=== PATIENT | female | born 1990 | race Caucasian/White ===

== ENCOUNTER → 2016-12-10 | Outpatient (CLI) | payer OTHER ==
--- NOTE | 2016-12-10 11:45 | US ---
Complete Abdominal Ultrasound History: Diffuse abdominal discomfort for 4 months. Comparison: None available. Findings: The liver is borderline echogenic with no focal hepatic masses. There is no intrahepatic bi liary dilatation. The common bile duct measures 2 mm and is normal. The gallbladder is normal. The sp phani is normal, measuring 10.3 cm. The kidneys have normal echotexture and contour without hydronephr osis or contour deforming masses. The right kidney measures 11.8 cm and the left kidney measures 10.6 cm. The visible aorta is normal caliber. The visible portions of the pancreas are normal with partia l obscuration of the pancreatic head and tail by overlying bowel gas. The visible portions of the IVC are normal. Impression: No visible etiology for the patient's symptoms.
--- NOTE | 2016-12-10 12:17 | DX ---
Upright PA and Lateral Chest, 2 Views Total, at 9:03 a.m. Clinical Indications: 26-year-old female with upper normal pain. Comparison Study: None. Findings: The lungs are clear, and no masses are found. The heart and pulmonary vessels are normal. There are no pleural effusions, and no pneumothorax. There is no free, subdiaphragmatic air. The b ones are unremarkable for this age. Impression: Normal.
== END ==
LOC: FIMAGING 08:42
PROVIDERS: ATTEND Family Medicine
DX: R07.89 Other chest pain (principal); R10.12 Left upper quadrant pain

== ENCOUNTER → 2018-12-02 | Outpatient (CLI) | payer OTHER | LOC: FIMAGING 10:06 | PROVIDERS: ATTEND Obstetrics & Gynecology | DX: O28.1 Abnormal biochemical finding on antenatal screening of mother (principal); R77.2 Abnormality of alphafetoprotein; Z3A.20 20 weeks gestation of pregnancy ==

== ENCOUNTER → 2019-02-17 | Outpatient (CLI) | payer OTHER | LOC: FIMAGING 14:57 | PROVIDERS: ATTEND Obstetrics & Gynecology | DX: O26.893 Other specified pregnancy related conditions, third trimester (principal); Z3A.31 31 weeks gestation of pregnancy ==

== ENCOUNTER 2019-04-13 08:42 | Inpatient (IN) | payer OTHER ==
--- NOTE | 2019-04-12 19:21 | GHP ---
[f rep st] PREOP HISTORY AND PHYSICAL DATE OF ADMISSION: 04/13/2019 HISTORY: The patient is a 28-year-old, G1, P0, with an estimated due date of 04/19/2019, who is here for a primary for breech presentation at 39 weeks and 1 day. Upon admission, the patient denies any regular contractions but occasional Tillman Ordaz. The patient has not had leakage of flu id or any bleeding and is reporting good movement. The patient was noted to be a breech presen tation for many weeks and declined an attempt external cephalic version. The patient has been counse led about the risks and benefits of primary section and has signed the consent form. COURSE: The patient has been followed with [facility] since 9 weeks gestation. The patient had an early ultrasound at 10 weeks that was consistent with her last menstrual period. The patient was noted to have an elevated MSAFP at 16 weeks gestation and had an evaluation, ultrasou nd and consult with the specialists on November 15. There was good reassurance of normal anatomy, an d they felt ruled out 98% of open neural tube defect, however, recommended a followup ultrasound in 2 -3 weeks. At that time, the estimated weight was 73rd percentile, and there were suboptimal vi ews of the lower spine. A recheck ultrasound on December 02 revealed an estimated weight at 97th percentile with a good recheck of anatomy and spine all normal. The specialist recommended a growth ultrasound in early third trimester and an early Glucola due to LGA. The patient had an early Glucola which was normal, and this was also repeated at 28 weeks and was normal. The patient had a followup growth ultrasound at 31 weeks and was 76th percentile size with normal fluid. The baby was breech presentation at that time and has remained so at every office visit since then. The patient w as offered external version at 37 weeks and declined. labs include maternal blood type O positive with negative antibody screen, RPR nonreactive. Rubella titer shows low immunity. Hepatitis B surface antigen negative, HIV negative. Cystic fibro sis, SMA, fragile X, all negative. Standard panel all negative. Urinalysis and culture negative. U rine drug screen negative. Pap smear negative. Gonorrhea and chlamydia negative. Verifi chromosome testing was negative. Initial CBC showed a hematocrit of 37.8%, and this dropped to 34% in mid preg gretchen, and the patient was initiated on iron. One-hour Glucola x2 evaluations was normal. GBS cultu re was negative. Varicella testing showed immunity. PAST MEDICAL HISTORY: Negative. PAST SURGICAL HISTORY: Negative. ALLERGIES: The patient has no known drug allergies. CURRENT MEDICATIONS: Only vitamins and iron. SOCIAL HISTORY: The patient is , lives with her . 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 The patient is a nonsmoker. No alcohol or drug use in . PHYSICAL EXAMINATION: GENERAL: At the time of preop, the patient is a well-developed, well-nourishe d white female in no physical distress. VITAL SIGNS: Patient is clinically afebrile. Blood pressur e 122/70. Weight 185 pounds. Urinalysis negative for protein or glucose. ABDOMEN: The patient has a gravid abdomen with fundal height of 38 cm and heart tones in the 140s. CERVICAL: Not perf ormed. EXTREMITIES: Do not show any edema and they are nontender. ASSESSMENT: Intrauterine at 39 weeks and 1 day, scheduled for primary section due to breech presentation. Rubella shows low immunity. Elevated MSAFP but normal ultrasounds and no i ssues with hypertension. Good growth in the third trimester. Mild anemia. PLAN: Will proceed with primary on 04/13/2019. The patient will receive preoperative anti biotics and will have SCDs on her lower extremities for DVT prophylaxis. Consent form signed for C-s ection. /[id number]/MODL
[~2019-04-13 08:42] MED LIST: AMMONIA AROMATIC 1 EACH AMP IH ONE; LIDOCAINE 1% 300 MG/30 ML SDV ONE; MISOPROSTOL 200 MCG TAB ONE; OXYTOCIN 10 UNIT/ML VIAL ONE; TERBUTALINE SULFATE 1 MG/ML VIAL ONE
[2019-04-13] MEDS ORDERED: CITRIC ACID/SODIUM CITRATE 30 ML UDCUP PO ONE (09:22)
[2019-04-13] MEDS ORDERED: ceFAZolin 2 GM/DEXTROSE 100 ML IV ONE (09:22)
[2019-04-13] MEDS ORDERED: LR 500 ML IV ONE (09:22)
[2019-04-13] MEDS: LR 1,000 ML IV SCH ×2 (09:31→14:49)
[2019-04-13 09:37] LABS: PLATELET COUNT 165 10^3/uL (150-400)
--- NOTE | 2019-04-13 10:18 | PDANEPAE ---
ANE Past Medical History - Cardiovascular History Hx Hypertension: No Hx Arrhythmias: No Hx Chest Pain: No Hx Coronary Artery / Peripheral Vascular Disease: No Hx CHF / Valvular Disease: No Hx Palpitations: No - Pulmonary History Hx COPD: No Hx Asthma/Reactive Airway Disease: No Hx Recent Upper Respiratory Infection: No Hx Oxygen in Use at Home: No Hx Sleep Apnea: No - Surgical History Prior Surgeries: wisdom teeth removal ANE Review of Systems Review of Systems: ANE Patient History - Allergies Allergies/Adverse Reactions: No Known Allergies Allergy (Unverified 04/11/19 19:38) - Home Medications Home medications: home medication list seen and reviewed - Anes Hx Anes Hx: no prior problems - Smoking Hx Smoking Status: Never smoked - Family Anes Hx Family Anes Hx: none ANE Labs/Vital Signs - Labs Result Diagrams: 04/13/19 09:20 - Vital Signs Height: 172.72 cm Weight: 83.915 kg ANE Physical Exam - Airway Neck exam: FROM Mallampati Score: Class 2 Mouth exam: normal dental/mouth exam - Pulmonary Pulmonary: clear to auscultation - Cardiovascular Cardiovascular: regular rate and rhythym - ASA Status ASA Status: II ANE Anesthesia Plan Anesthesia Plan: spinal
[2019-04-13] MEDS ORDERED: ePHEDrine SULFATE 25 MG/5 ML SYR ONE ×2 (10:22→12:08)
[2019-04-13] MEDS ORDERED: BUPIVACAINE/DEXTROSE 7.5MG/ML 2 ML SPINAL AMP SP ONE (10:23)
--- NOTE | 2019-04-13 10:26 | PDHPUP ---
History & Physical Update H&P update statement: This history and physical update is based on an assessment of the patient which was completed after admission or registration (within 24 hours), but prior to the surgery/procedure. H&P update: no change in patient's condition since H&P completed
[2019-04-13] MEDS ORDERED: ONDANSETRON 4 MG/2 ML VIAL ONE (10:58)
[2019-04-13] MEDS ORDERED: morphINE PF 5 MG/10 ML INJ ONE (11:02)
[2019-04-13] MEDS ORDERED: RANITIDINE 50 MG/2 ML VIAL ONE (12:07)
[2019-04-13] MEDS ORDERED: PHENYLEPHRINE HCL 100 MCG/ML SYR ONE (12:08)
[2019-04-13] MEDS ORDERED: METOCLOPRAMIDE 10 MG/2 ML VIAL ONE (12:08)
[2019-04-13] MEDS ORDERED: OXYTOCIN 100 UNITS/10 ML VIAL ONE (12:24)
[2019-04-13] MEDS ORDERED: OXYCODONE/APAP 5/325 TAB PO PRN (12:36)
[2019-04-13] MEDS ORDERED: fentaNYL 100 MCG/2 ML INJ IVP PRN (12:36)
[2019-04-13] MEDS ORDERED: NALOXONE HCL 0.4 MG/ML INJ IVP PRN ×2 (12:36→13:10)
[2019-04-13] MEDS ORDERED: PHENYLEPHRINE HCL 100 MCG/ML SYR IVP PRN (12:36)
[2019-04-13] MEDS ORDERED: METOCLOPRAMIDE 10 MG/2 ML VIAL IVP PRN (12:36)
[2019-04-13] MEDS ORDERED: ONDANSETRON 4 MG/2 ML VIAL IVP PRN (12:36)
[2019-04-13] MEDS ORDERED: MEPERIDINE 25 MG/0.5 ML AMP IVP PRN (12:36)
[2019-04-13] MEDS ORDERED: HYDROCODONE/APAP 5/325 TAB PO PRN (12:36)
[2019-04-13] MEDS ORDERED: HYDROmorphONE/DILAUDID 1 MG/ML INJ IVP PRN (12:36)
--- NOTE | 2019-04-13 12:41 | PREANESOB ---
Obstetric Pre-Anesthesia Info - General Info Proposed Procedure: C section : 1 Para: 0 KYLER: 04/19/19 Gestational Age: 39 week(s) and 1 day(s) - Info Status: Full Term - Labor Status Section History: Primary Indications for Current Section: Abnormal Lie, Breech Anesthesia Allergies/Adverse Reactions: Allergy/AdvReac Type Severity Reaction Status Date / Time No Known Allergies Allergy Unverified 04/11/19 19:38 Visit Medications: Generic Name Dose Route Start Last Admin Trade Name Freq PRN Reason Stop Dose Admin Hydrocodone Bitart/Acetaminophen 1 - 2 tab 04/13/19 12:36 [place] 5/325 PO 04/13/19 13:37 Q4HRS PRN Pain, Moderate Able to Take PO Ephedrine Sulfate 10 - 20 mg 04/13/19 12:36 Ephedrine Sulfate IV 04/13/19 13:37 Q5M PRN Hypotension Fentanyl 25 - 50 mcg 04/13/19 12:36 Sublimaze IVP 04/13/19 13:36 Q5M PRN Short acting pain control Hydromorphone HCl 0.2 - 0.4 mg 04/13/19 12:36 Dilaudid IVP 04/13/19 13:36 Q10M PRN Pain, Severe Unable to Take PO Lactated Ringer's 1,000 mls @ 125 mls/hr 04/13/19 09:22 04/13/19 09:31 Lr IV 04/14/19 09:21 1,000 mls CONT KATHY Administration Meperidine HCl 12.5 - 25 mg 04/13/19 12:36 Demerol IVP 04/13/19 13:37 Q10M PRN shivering/rigors Metoclopramide HCl 10 mg 04/13/19 12:36 Reglan Injection IVP 04/13/19 13:37 ONCE PRN GI motility Naloxone HCl 0.1 mg 04/13/19 12:36 Narcan IVP 04/13/19 13:37 Q2M PRN Respiratory Depression Ondansetron HCl 4 mg 04/13/19 12:36 Zofran IVP 04/13/19 13:37 ONCE PRN Nausea/Vomiting, Can't Take PO Oxycodone/Acetaminophen 1 - 2 tab 04/13/19 12:36 Percocet 5/325 PO 04/13/19 13:37 Q4HRS PRN Pain, Severe Able to Take PO Phenylephrine HCl 100 mcg 04/13/19 12:36 Neosynephrine IVP 04/13/19 13:37 Q1M PRN Hypotension Discontinued Medications Generic Name Dose Route Start Last Admin Trade Name Freq PRN Reason Stop Dose Admin Ammonia (Aromatic Spirit) Confirm 04/13/19 07:50 Ammonia Aromatic Administered 04/13/19 07:51 Dose 1 each IH .STK-MED ONE Bupivacaine HCl/Dextrose Confirm 04/13/19 10:23 Marcaine Spinal Administered 04/13/19 10:24 Dose 2 ml SP .STK-MED ONE Citric Acid/Sodium Citrate 30 ml 04/13/19 09:22 04/13/19 10:19 Bicitra PO 04/13/19 09:23 30 ml ONCALL ONE Administration Ephedrine Sulfate Confirm 04/13/19 10:22 Ephedrine Sulfate Administered 04/13/19 10:23 Dose 25 mg .ROUTE .STK-MED ONE Ephedrine Sulfate Confirm 04/13/19 12:08 Ephedrine Sulfate Administered 04/13/19 12:09 Dose 25 mg .ROUTE .STK-MED ONE Cefazolin Sodium/Dextrose 100 mls @ 200 mls/hr 04/13/19 09:22 04/13/19 10:18 Ancef IV 04/13/19 09:51 100 mls ONCALL ONE Administration Protocol Lactated Ringer's 500 mls @ 0 mls/hr 04/13/19 09:22 Lr IV 04/13/19 09:23 ONCE ONE As Directed Lidocaine HCl Confirm 04/13/19 07:50 Lidocaine Hcl 1% Administered 04/13/19 07:51 Dose 300 mg .ROUTE .STK-MED ONE Metoclopramide HCl Confirm 04/13/19 12:08 Reglan Injection Administered 04/13/19 12:09 Dose 10 mg .ROUTE .STK-MED ONE Misoprostol Confirm 04/13/19 07:51 Cytotec Administered 04/13/19 07:52 Dose 1,000 mcg .ROUTE .STK-MED ONE Morphine Sulfate Confirm 04/13/19 11:02 Morphine Pf 5 Mg/10 Ml Administered 04/13/19 11:03 Dose 5 mg .ROUTE .STK-MED ONE Ondansetron HCl Confirm 04/13/19 10:58 Zofran Administered 04/13/19 10:59 Dose 4 mg .ROUTE .STK-MED ONE Oxytocin Confirm 04/13/19 07:51 Pitocin Administered 04/13/19 07:52 Dose 40 unit .ROUTE .STK-MED ONE Oxytocin Confirm 04/13/19 12:24 Pitocin Administered 04/13/19 12:25 Dose 100 units .ROUTE .STK-MED ONE Phenylephrine HCl Confirm 04/13/19 12:08 Neosynephrine Administered 04/13/19 12:09 Dose 1,000 mcg .ROUTE .STK-MED ONE Ranitidine HCl Confirm 04/13/19 12:07 Zantac Administered 04/13/19 12:08 Dose 50 mg .ROUTE .STK-MED ONE Terbutaline Sulfate Confirm 04/13/19 07:51 Brethine Administered 04/13/19 07:52 Dose 1 mg .ROUTE .STK-MED ONE - Anesthesia History Anesthesia & Operative History: No Prior Problems - Vital Signs Height/Weight (Nursing): Height 172.72 cm Weight 83.915 kg - Focused Exam Neck exam: FROM Mallampati Score: Class 2 Mouth exam: normal dental/mouth exam Pulmonary: clear to auscultation Cardiovascular: regular rate and rhythym Labs: 04/13/19 09:20 Patient ABO/Rh O POSITIVE 04/13/19 09:20 - Plan Consent Signed and on Chart: Yes Patient/Guardian Understands and Agrees to Plan: Yes
[2019-04-13] MEDS: KETOROLAC 30 MG/1 ML SDV IVP SCH ×2 (13:00→18:56)
[2019-04-13] MEDS ORDERED: POLYETHYLENE GLYCOL 3350 17 GM PKT PO PRN (13:02)
[2019-04-13] MEDS ORDERED: LACTULOSE 20 GM/30 ML UDCUP PO PRN (13:02)
[2019-04-13] MEDS ORDERED: PROMETHAZINE HCL 25 MG/ML INJ IVP PRN (13:02)
[2019-04-13] MEDS ORDERED: BISACODYL 10 MG SUPP PR PRN (13:02)
[2019-04-13] MEDS ORDERED: MAGNESIUM HYDROXIDE 30 ML UDCUP PO PRN (13:02)
[2019-04-13] MEDS ORDERED: KETOROLAC 30 MG/1 ML SDV ONE (13:05)
[2019-04-13] MEDS ORDERED: BACITRACIN OINTMENT 1 PACKET TP ONE (13:09)
--- NOTE | 2019-04-13 13:27 | OBDEL ---
Info Type: Primary Presentation at Delivery: Breech L&D Analgesia/Anesthesia Type: Spinal (with duramorph) GBS+: No Intrapartum Medications: Generic Name Dose Route Start Last Admin Trade Name Freq PRN Reason Stop Dose Admin Lactated Ringer's 1,000 mls @ 125 mls/hr 04/13/19 09:22 04/13/19 09:31 Lr IV 04/14/19 09:21 1,000 mls CONT KATHY Administration Discontinued Medications Generic Name Dose Route Start Last Admin Trade Name Freq PRN Reason Stop Dose Admin Citric Acid/Sodium Citrate 30 ml 04/13/19 09:22 04/13/19 10:19 Bicitra PO 04/13/19 09:23 30 ml ONCALL ONE Administration Cefazolin Sodium/Dextrose 100 mls @ 200 mls/hr 04/13/19 09:22 04/13/19 10:18 Ancef IV 04/13/19 09:51 100 mls ONCALL ONE Administration Protocol - Hospital Course Intrapartum: 04/13/19 13:27 breech most of - declined ECV Operative Report - Delivery Pre-op Diagnoses: IUP at 39w1d, breech, suprapubic mole Post-op Diagnoses: same, delivered, mole removed History of Prior Section: No Number of Prior Sections: 0 Nulliparous Prior to Delivery: Yes Indications for Current Section: Abnormal Lie, Breech Procedure: Scheduled, Low Transverse Surgeon: Ashley Parnell Senior Java Developer: Valentina Christianson Anesthesiologist: Yenny Porter Complications: None Findings: normal uterus, tubes, ovaries. clear fluid upon amniotomy, complete breech. legs delivered without probs. del up past shoulders and each arm swept over chest and out through hysterotomy. elevated body and head delivered without problems. no NC. vigorous upon delivery. delayed cord clamp for first minute. easy delivery of placenta, complete. good uterine tone immed. ut externalized for closure. hysterotomy closed in 2 layers. no extensions. clear UOP. suprapubic mole removed sharply with scalpel and base cauterized. no stitch needed. bacitracin applied and bandaide Specimen(s)/Path: Other (Specify) (none) IV Fluid (ml): 2,100 EBL: 1000 [place] Data KYLER: 04/19/19 Gestational Age: 39 week(s) and 1 day(s) [place] Delivery Date: 04/13/19 Delivery Time: 12:20 Sex of Infant: Female Weight (gm): 3606 g (7#15) Score (1 Min): 8 Score (5 Min): 9 ICD10 Worksheet Patient Problems: Problems Problem Status Onset S/P primary low transverse Acute
[2019-04-13] MEDS: ACETAMINOPHEN 325 MG TAB PO SCH ×2 (16:31→21:45)
--- NOTE | 2019-04-13 17:27 | OBPP ---
Progress Note Assessment/Plan: Assessment: 28 y/o POD 0 s/p LTCS secondary to breech Plan: Advance diet as tolerated tonight. Dangle with assistance and may remove bowens if pt desires. Will check Hct and blood type and antibody screen to send to [facility] blood center to identify in the am. Routine POC and support. 04/13/19 17:24 Subjective/ Course: 04/13/19 17:22 Pt is doing well. She is breast feeding now and baby seems to have a good latch. She denies nausea/vomiting and is tolerating small amounts of food. She has min lochia. Her pain regimen is working well with Tylenol and Toradol. So far, she hasn't needed Oxy. Objective: 04/13/19 09:20 Temp Pulse Resp BP Pulse Ox 36.2 C 63 16 90/64 L 99 04/13/19 16:45 04/13/19 16:45 04/13/19 16:45 04/13/19 16:45 04/13/19 16:45 Uterine Position/Fundal Height: Umbilicus -2 Uterine Tone: Firm Physical Exam - Physical Exam Abdomen: dressing (c/d/i) Extremities: swelling (no), Griselda's sign (neg)
[2019-04-13] MEDS: BACITRACIN ZINC 0.5 OZ OINTTUBE TP SCH ×2 (17:33→20:32)
[2019-04-13] MEDS: IBUPROFEN 600 MG TAB PO SCH ×2 (17:35→20:26)
[2019-04-13] MEDS: SIMETHICONE 80 MG TAB CHEW PO PRN (20:30)
[2019-04-14] MEDS: KETOROLAC 30 MG/1 ML SDV IVP SCH ×2 (00:55→06:50)
[2019-04-14] MEDS: SENNOSIDES/DOCUSATE SODIUM TAB PO SCH ×3 (01:18→21:39)
[2019-04-14] MEDS: ACETAMINOPHEN 325 MG TAB PO SCH ×5 (03:51→21:47)
[2019-04-14] MEDS: IBUPROFEN 600 MG TAB PO SCH ×3 (04:22→18:44)
--- NOTE | 2019-04-14 08:40 | POSTANESTH ---
Post Anesthetic Evaluation Cardiovascular Status: Normal, Stable Respiratory Status: Normal, Stable Level of Consciousness/Mental Status: Can Participate in Eval Pain Control: Adequate, Prn Tx Ordered Nausea/Vomiting Control: Adequate, Prn Tx Ordered Complications Possibly Related to Anesthesia: None Noted
--- NOTE | 2019-04-14 09:21 | OBPP ---
Progress Note Assessment/Plan: Assessment: 1) 28 y/o G1 now P1 s/p PLTCS secondary to malpresentation-breech POD #1 - pt is stable 2) Anemia - pt is asymptomatic Plan: Continue routine post-op care Will start iron, cont stool softener Encourage ambulation Pt may shower and then dressing can be removed; keep incision clean and dry support an needed Plan for d/c home in 48 hours 04/14/19 09:18 Subjective/ Course: 04/13/19 17:22 Pt is doing well. She is breast feeding now and baby seems to have a good latch. She denies nausea/vomiting and is tolerating small amounts of food. She has min lochia. Her pain regimen is working well with Tylenol and Toradol. So far, she hasn't needed Oxy. 04/14/19 09:20 Pt seen and examined. Doing well with no complaints. Pain is well controlled with po meds. Pt was OOB once at midnight, gabriela regular diet, bowens just removed- has not voided yet, and passing flatus. Mild lochia. Denies any f/c/n/v/CP or SOB. BF is going well so far. Objective: 04/14/19 06:30 Temp Pulse Resp BP Pulse Ox 36.7 C 78 20 111/67 97 04/14/19 03:58 04/14/19 03:58 04/14/19 03:58 04/14/19 03:58 04/14/19 04:00 Uterine Position/Fundal Height: Umbilicus -2 Uterine Tone: Firm Physical Exam - Physical Exam General Appearance: WD/WN, alert, no apparent distress Respiratory: lungs clear, normal breath sounds Cardiac/Chest: regular rate, rhythm Abdomen: normal bowel sounds, non-tender (appropriate tednerness), soft, flatus (+), incision (C/D/I with dressing in place; pt also had a mole removed with another bandage near the mons), dressing (C/D/I without shadowing) Extremities: non-tender, normal inspection Skin: normal color, warm/dry Neuro/Psych: alert, normal mood/affect, oriented x 3
--- NOTE | 2019-04-14 11:00 | POSTANESTH ---
Post Anesthetic Evaluation Cardiovascular Status: Normal, Stable, Similar to Pre-Op Cond Respiratory Status: Normal, Stable, Similar to Pre-op Cond. Level of Consciousness/Mental Status: Can Participate in Eval, Alert and Oriented Pain Control: Adequate, Prn Tx Ordered Nausea/Vomiting Control: Adequate, Prn Tx Ordered Complications Possibly Related to Anesthesia: None Noted Notes: Pt seen and examined. Block has resolved completely. Pt is able to ambulate. Back site c/d/i, no e/e/e. denies n/v/ventura, reports some pruritis, resolving. No apparent ill effects from SAB with ITM.
[2019-04-14] MEDS: FERRO-SEQUELS 65 MG TAB.ER PO SCH (11:45)
[2019-04-14] MEDS: SIMETHICONE 80 MG TAB CHEW PO PRN ×2 (11:45→21:47)
[2019-04-14] MEDS ORDERED: MEASLES,MUMPS&RUBELLA VACC/PF 0.5 ML VIAL SC ONE (13:11)
[2019-04-14] MEDS: BACITRACIN ZINC 0.5 OZ OINTTUBE TP SCH ×2 (18:20→21:41)
[2019-04-15] MEDS: IBUPROFEN 600 MG TAB PO SCH ×4 (00:51→20:45)
[2019-04-15] MEDS: SENNOSIDES/DOCUSATE SODIUM TAB PO SCH ×2 (08:15→20:45)
[2019-04-15] MEDS: FERRO-SEQUELS 65 MG TAB.ER PO SCH (08:16)
[2019-04-15] MEDS ORDERED: MEASLES,MUMPS&RUBELLA VACC/PF 0.5 ML VIAL SC ONE (09:00)
--- NOTE | 2019-04-15 09:09 | OBPP ---
Progress Note Assessment/Plan: Assessment: pod# 2 s/p PLTCS for breech uncomplicated post course breast feeding and supplementing positive antibody screen on admission - repeat was negative rubella low immune - mmr Plan: 04/15/19 09:05 04/15/19 09:11 Subjective/ Course: 04/13/19 17:22 Pt is doing well. She is breast feeding now and baby seems to have a good latch. She denies nausea/vomiting and is tolerating small amounts of food. She has min lochia. Her pain regimen is working well with Tylenol and Toradol. So far, she hasn't needed Oxy. 04/14/19 09:20 Pt seen and examined. Doing well with no complaints. Pain is well controlled with po meds. Pt was OOB once at midnight, gabriela regular diet, bowens just removed- has not voided yet, and passing flatus. Mild lochia. Denies any f/c/n/v/CP or SOB. BF is going well so far. 04/15/19 09:06 patient is doing well. pain is well controlled. normal lochia. working on breast feeding. denies headache and changes in vision. anxious about breast feeding and needing to supplement as baby is jaundiced. had positive antibody screen on admission. lab sent to [facility] was negative antibody. patient aware. normal lochia. voiding without difficulty. Objective: 04/14/19 06:30 Temp Pulse Resp BP Pulse Ox 36.3 C 74 16 105/70 97 04/15/19 00:57 04/15/19 00:57 04/15/19 00:57 04/15/19 00:57 04/15/19 00:57 Physical Exam - Physical Exam Neck: non-tender, full range of motion Respiratory: chest non-tender, lungs clear, normal breath sounds Cardiac/Chest: normal peripheral pulses, regular rate, rhythm Abdomen: normal bowel sounds, non-tender, other (fundus firm and non tender) Extremities: normal range of motion, non-tender, normal inspection, normal capillary refill Skin: normal color, warm/dry Neuro/Psych: no motor/sensory deficits, alert, normal mood/affect, oriented x 3
[2019-04-15] MEDS: ACETAMINOPHEN 325 MG TAB PO SCH ×2 (10:09→18:07)
[2019-04-15] MEDS: oxyCODONE IR 5 MG TAB PO PRN ×3 (11:05→22:14)
[2019-04-15] MEDS: BACITRACIN ZINC 0.5 OZ OINTTUBE TP SCH ×4 (15:06→22:15)
[2019-04-16] MEDS: ACETAMINOPHEN 325 MG TAB PO SCH ×6 (01:18→21:24)
[2019-04-16] MEDS: IBUPROFEN 600 MG TAB PO SCH ×5 (02:49→21:24)
[2019-04-16] MEDS: SENNOSIDES/DOCUSATE SODIUM TAB PO SCH ×2 (08:03→22:37)
[2019-04-16] MEDS: FERRO-SEQUELS 65 MG TAB.ER PO SCH (08:03)
--- NOTE | 2019-04-16 10:48 | OBPP ---
Progress Note Assessment/Plan: Assessment: 28 y/o POD 3 s/p LTCS secondary to breech Plan: support and routine POC. Discussed bowel protocol and trying to get rest today. D/c home tomorrow. 04/13/19 17:24 04/16/19 10:48 Subjective/ Course: 04/13/19 17:22 Pt is doing well. She is breast feeding now and baby seems to have a good latch. She denies nausea/vomiting and is tolerating small amounts of food. She has min lochia. Her pain regimen is working well with Tylenol and Toradol. So far, she hasn't needed Oxy. 04/14/19 09:20 Pt seen and examined. Doing well with no complaints. Pain is well controlled with po meds. Pt was OOB once at midnight, gabriela regular diet, bowens just removed- has not voided yet, and passing flatus. Mild lochia. Denies any f/c/n/v/CP or SOB. BF is going well so far. 04/15/19 09:06 patient is doing well. pain is well controlled. normal lochia. working on breast feeding. denies headache and changes in vision. anxious about breast feeding and needing to supplement as baby is jaundiced. had positive antibody screen on admission. lab sent to [facility] was negative antibody. patient aware. normal lochia. voiding without difficulty. 04/16/19 10:45 Pt is doing well. She has good pain control with scheduled Ibuprofen and Tylenol and is using Oxycodone rarely. She is ambulating and voiding without difficulty and has min lochia. She hasn't had a BM yet and is taking Senna and meds to work toward that today. Breast feeding is a challenge, Baby has lost more than 10% body weight and is now jaundice requiring bili lights. She is pumping and getting colustrum and feeding donor milk as well. They are planning to stay through today because of baby's issues. Objective: 04/14/19 06:30 Patient ABO/Rh TNP 04/13/19 09:20 Temp Pulse Resp BP Pulse Ox 37.2 C 97 16 115/77 97 04/16/19 08:00 04/16/19 08:00 04/16/19 08:00 04/16/19 08:00 04/16/19 08:00 Uterine Position/Fundal Height: Umbilicus -2 Uterine Tone: Firm Physical Exam - Physical Exam General Appearance: WD/WN, alert, no apparent distress Neck: non-tender, full range of motion, supple Respiratory: chest non-tender, lungs clear, normal breath sounds Cardiac/Chest: regular rate, rhythm Abdomen: normal bowel sounds, incision (c/d/i) Extremities: swelling (no), Griselda's sign (neg)
[2019-04-16] MEDS: BACITRACIN ZINC 0.5 OZ OINTTUBE TP SCH ×3 (15:17→21:24)
[2019-04-17] MEDS: IBUPROFEN 600 MG TAB PO SCH ×3 (03:02→15:00)
[2019-04-17] MEDS: ACETAMINOPHEN 325 MG TAB PO SCH ×3 (03:02→15:00)
[2019-04-17] MEDS: FERRO-SEQUELS 65 MG TAB.ER PO SCH (09:50)
--- NOTE | 2019-04-17 11:26 | OBPP ---
Progress Note Assessment/Plan: Assessment: pod# 4 s/p PLTCS for breech uncomplicated post course breast feeding and supplementing positive antibody screen on admission - repeat was negative rubella low immune - mmr anemia - on iron uncomplicated post course discharge instructions Plan: 04/15/19 09:05 04/15/19 09:11 04/17/19 11:24 Subjective/ Course: 04/13/19 17:22 Pt is doing well. She is breast feeding now and baby seems to have a good latch. She denies nausea/vomiting and is tolerating small amounts of food. She has min lochia. Her pain regimen is working well with Tylenol and Toradol. So far, she hasn't needed Oxy. 04/14/19 09:20 Pt seen and examined. Doing well with no complaints. Pain is well controlled with po meds. Pt was OOB once at midnight, gabriela regular diet, bowens just removed- has not voided yet, and passing flatus. Mild lochia. Denies any f/c/n/v/CP or SOB. BF is going well so far. 04/15/19 09:06 patient is doing well. pain is well controlled. normal lochia. working on breast feeding. denies headache and changes in vision. anxious about breast feeding and needing to supplement as baby is jaundiced. had positive antibody screen on admission. lab sent to [facility] was negative antibody. patient aware. normal lochia. voiding without difficulty. 04/16/19 10:45 Pt is doing well. She has good pain control with scheduled Ibuprofen and Tylenol and is using Oxycodone rarely. She is ambulating and voiding without difficulty and has min lochia. She hasn't had a BM yet and is taking Senna and meds to work toward that today. Breast feeding is a challenge, Baby has lost more than 10% body weight and is now jaundice requiring bili lights. She is pumping and getting colustrum and feeding donor milk as well. They are planning to stay through today because of baby's issues. 04/17/19 11:25 patient is doing well. pain is well controlled. normal lochia. working on breast feeding. is supplementing and using bush and sns system. mood good overall. having some issues with overwhelm but getting better. mood precautions discussed. ready to go home. Objective: 04/14/19 06:30 Patient ABO/Rh TNP 04/13/19 09:20 Temp Pulse Resp BP Pulse Ox 36.6 C 76 16 115/76 98 04/16/19 20:00 04/16/19 20:00 04/16/19 20:00 04/16/19 20:00 04/16/19 20:00 Physical Exam - Physical Exam Neck: non-tender, full range of motion, supple Respiratory: chest non-tender, lungs clear, normal breath sounds Cardiac/Chest: normal peripheral pulses, regular rate, rhythm Abdomen: normal bowel sounds, non-tender, other (fundus firm and non tender) Extremities: normal range of motion, non-tender, normal inspection, normal capillary refill Skin: normal color, warm/dry, other (incision clean dry and intact) Neuro/Psych: no motor/sensory deficits, alert, normal mood/affect, oriented x 3
--- NOTE | 2019-04-17 11:29 | OBGCSDC ---
General Delivery Information - General Info : 1 Para: 1 Abortions: 0 Type: Primary L&D Analgesia/Anesthesia Type: Spinal Admission Date: 04/13/19 Labs: Patient ABO/Rh TNP 04/13/19 09:20 Hct 33.2 % (38.0-47.0) L 04/14/19 06:30 Temp Pulse Resp BP Pulse Ox 04/16/19 20:00 36.6 C 76 16 115/76 98 04/16/19 15:31 36.4 C 88 16 119/73 100 - Hospital Course Intrapartum: 04/13/19 13:27 breech most of - declined ECV : 04/13/19 17:22 Pt is doing well. She is breast feeding now and baby seems to have a good latch. She denies nausea/vomiting and is tolerating small amounts of food. She has min lochia. Her pain regimen is working well with Tylenol and Toradol. So far, she hasn't needed Oxy. 04/14/19 09:20 Pt seen and examined. Doing well with no complaints. Pain is well controlled with po meds. Pt was OOB once at midnight, gabriela regular diet, bowens just removed- has not voided yet, and passing flatus. Mild lochia. Denies any f/c/n/v/CP or SOB. BF is going well so far. 04/15/19 09:06 patient is doing well. pain is well controlled. normal lochia. working on breast feeding. denies headache and changes in vision. anxious about breast feeding and needing to supplement as baby is jaundiced. had positive antibody screen on admission. lab sent to [facility] was negative antibody. patient aware. normal lochia. voiding without difficulty. 04/16/19 10:45 Pt is doing well. She has good pain control with scheduled Ibuprofen and Tylenol and is using Oxycodone rarely. She is ambulating and voiding without difficulty and has min lochia. She hasn't had a BM yet and is taking Senna and meds to work toward that today. Breast feeding is a challenge, Baby has lost more than 10% body weight and is now jaundice requiring bili lights. She is pumping and getting colustrum and feeding donor milk as well. They are planning to stay through today because of baby's issues. 04/17/19 11:25 patient is doing well. pain is well controlled. normal lochia. working on breast feeding. is supplementing and using bush and sns system. mood good overall. having some issues with overwhelm but getting better. mood precautions discussed. ready to go home. - Delivery Providers Surgeon: Ashley Parnell Block Feeder: Valentina Christianson Anesthesiologist: Yenny Porter - Delivery Number of Prior Sections: 0 Indications for Current Section: Abnormal Lie, Breech Surgical Procedures: Scheduled, Low Transverse Intra-op Complications: None EBL: [address] KYLER: 04/19/19 Gestational Age: 39 week(s) and 5 day(s) Leonard Delivery Date: 04/13/19 Delivery Time: 12:20 Sex of Infant: Female Weight (gm): 3606 g Score (1 Min): 8 Score (5 Min): 9 Discharge Information - Discharge Information Prescriptions: oxyCODONE IR [Oxycodone Ir (*)] 5 - 10 mg PO Q4HRS PRN #10 tab PRN Reason: Pain, Severe Able To Take Po Condition: Good
[2019-04-17 11:42] VITALS: BP 116/73
[2019-04-17] MEDS: BACITRACIN ZINC 0.5 OZ OINTTUBE TP SCH (15:45)
[2019-04-17] MEDS: SENNOSIDES/DOCUSATE SODIUM TAB PO SCH (15:46)
== END 2019-04-17 17:00 | disposition home or self-care (01) | DRG 788 ==
LOC: FLD 08:42 → FOB 15:08
PROVIDERS: ADMIT Obstetrics & Gynecology; ATTEND Obstetrics & Gynecology
PROC: 10D00Z1 Extraction of Products of Conception, Low, Open Approach (ICD-10-PCS; principal; 2019-04-13)
DX: O32.1XX0 Maternal care for breech presentation, not applicable or unspecified (principal); O99.02 Anemia complicating childbirth; D64.9 Anemia, unspecified; Z3A.39 39 weeks gestation of pregnancy; Z37.0 Single live birth
CPT/HCPCS: 86850-90; 86870-90; 99001-90; J0690; J1885; J2274; J2370; J2405; J2590; J2765; J2780; J3105

== ENCOUNTER → 2019-04-26 | Outpatient (CLI) | payer OTHER | LOC: FLACT 11:03 ==